=== PATIENT | female | born 1965 ===

== ENCOUNTER 2016-12-31 05:54 | Observation (INO) | payer BC ==
[2016-12-25 10:16] LABS: BASOPHILS 0.3 %; BASOPHILS ABSOLUTE 0.02 10/3/uL (0.0-0.16); EOSINOPHILS 0.6 %; EOSINOPHILS ABSOLUTE 0.05 10/3/uL (0.0-0.53); HEMATOCRIT 41.2 % (36.0-48.0); HEMOGLOBIN 13.6 g/dL (12.0-16.0); IMMATURE GRANULOCYTES 0.1 %; IMMATURE GRANULOCYTES ABSOLUTE 0.01 10/3/uL (0.0-0.11); LYMPHOCYTES 21.6 %; LYMPHOCYTES ABSOLUTE 1.69 10/3/uL (0.67-4.30); MANUAL DIFF NO %; MEAN CORPUSCULAR HEMOGLOB 29.5 pg (26.0-34.0); MEAN CORPUSCULAR VOLUME 89.4 fL (80-100); MONOCYTES 4.8 %; MONOCYTES ABSOLUTE 0.38 10/3/uL (0.21-1.20); NEUTROPHILS 72.6 %; NEUTROPHILS ABSOLUTE 5.69 10/3/uL (2.02-8.40); PLATELET COUNT 238 10/3/uL (150-400); RBC DISTRIBUTION WIDTH 13.1 % (12.0-16.0); RED CELL COUNT 4.61 10/6/uL (4.0-5.6); WHITE BLOOD CELLS 7.8 10/3/uL (4.5-10.5)
[2016-12-25 10:26] LABS: BUN (BLOOD UREA NITROGEN) 11 MG/DL (6-23); CALCIUM, SERUM 9.2 MG/DL (8.5-10.4); CHLORIDE, SERUM 106 MMOL/L (96-112); CO2 (CARBON DIOXIDE) 29 MMOL/L (24-34); GFR AFRICAN AMERICAN 118 ML/MIN (>=60); GFR NON AFRICAN AMERICAN 102 ML/MIN (>=60); GLUCOSE, SERUM 100 MG/DL (60-99); POTASSIUM, SERUM 3.8 MMOL/L (3.5-5.3); SODIUM, SERUM 143 MMOL/L (135-148)
--- NOTE | ~2016-12-31 | OP ---
Record Of Operation [facility] [address] [place]. [address] NAME: FATEMEH RIBERA : 69 STATUS : DIS Aamnda PAT#: [id number] AGE: 51 ADM/REG DATE : 12/31/16 MR#: [id number] REPORT SERV DATE: 01/05/17 DICTATED BY: ROCKY HWANG DATE: 01/05/17 REPORT STATUS : Draft TRANSCRIBED BY: MODOctavia DATE: 01/05/17 DATE OF PROCEDURE: 12/31/2016 PREOPERATIVE DIAGNOSES: 1. Abnormal uterine bleeding. 2. Chronic pelvic pain. POSTOPERATIVE DIAGNOSIS: Fibroid uterus. PROCEDURES: 1. Laparoscopic hysterectomy with bilateral salpingo-oophorectomy via da Óscar laparoscopic robotic instrument, CPT code 74535. 2. Extensive lysis of adhesions, CPT code 99776. 3. Repair of ventral hernia laparoscopically, CPT Code 51923. ESTIMATED BLOOD LOSS: 25 mL. FLUIDS: 1600 mL of crystalloid. URINE OUTPUT: 200 mL. INDICATION AND FINDINGS: This is a 51-year-old female who has had abnormal uterine bleeding not controlled by hormonal therapy and she is now requested the uterus be removed. The uterus was removed intact and appeared to be consistent with fibroids and adenomyosis. She was also noted to have a large ventral hernia from previous surgery. Extensive lysis of adhesions was undertaken to remove all contents from the hernia which included the omentum. Once the contents were removed. The hernia was repaired using 0 PDS V-Loc. Postprocedure cystoscopy was performed with excellent bilateral ureteral jets. No evidence of bladder defect. Prior to the induction of anesthesia, the patient was treated with Lovenox for DVT prophylaxis. PROCEDURE IN DETAIL: The patient was taken to the operating room, placed in supine position for administration of general anesthesia. She was then placed in dorsal lithotomy position and prepped and draped in usual sterile fashion. A GRACE uterine manipulator was placed through the uterine cervix and out the fundus, and a OH ring was sutured to the patient's cervix. Our attention was then turned toward the anterior abdominal wall where an incision was made approximately 25 cm above the pubic symphysis and carried down to the underlying layer of fascia. The fascia was then grasped with two sutures of 0 Vicryl, tented up, and entered sharply. The peritoneum was then tented up and entered sharply, and a laparoscopic trocar was placed under direct visualization. The abdominal cavity was insufflated, two additional 8 mm trocars were placed, one additional 12 mm trocar was placed. The patient was then docked to the laparoscopic robotic instrument and the remainder of the procedure was performed via the da Óscar. The above findings were noted. Pelvic washings were taken. Extensive lysis of adhesions was undertaken. Again, the omentum was densely adherent to the anterior abdominal wall with a large hernia noted. All the omentum was removed from the hernia, and this was performed sharply with cautery for hemostasis. Once the hernia was Record Of Operation [facility] [id number] [place]. [address] NAME: FATEMEH RIBERA : 69 STATUS : DIS Amanda PAT#: [id number] AGE: 51 ADM/REG DATE : 12/31/16 MR#: [id number] REPORT SERV DATE: 01/05/17 DICTATED BY: ROCKY HWANG DATE: 01/05/17 REPORT STATUS : Draft TRANSCRIBED BY: DUNCAN DATE: 01/05/17 removed and the fascial edges were clearly visible 0 PDS V-Loc was then used to close the ventral hernia. Once the ventral hernia was closed adequately, our attention was then turned towards the pelvis. The retroperitoneal spaces were opened via the round ligaments which were grasped with bipolar cautery, cauterized and transected bilaterally. The gonadal vessels were isolated. Hemoclips were placed to ensure long-term hemostasis. They were then coagulated and transected bilaterally. The uterine arteries were identified at their origin and hemoclips were placed to ensure long-term hemostasis. They were then skeletonized at the level of the cervix, grasped with bipolar cautery, cauterized and transected bilaterally. Anteriorly, a bladder flap was created and taken down to a level well below the cervix. The uterosacral cardinal complex was then taken down using unipolar cautery and a circumferential incision was made around the cervix and vagina and the uterus, tubes, ovaries, and cervix were delivered through the vagina with the above findings noted. The vaginal cuff was then closed with a running stitch of #1 PDS V-Loc. The pelvis was irrigated with copious amounts of warm water. All pedicles were inspected and found to be hemostatic. Sites on the anterior abdominal wall and omentum were also visualized with excellent hemostasis noted. The laparoscopic instruments were removed. The initial incision was closed with 0 Vicryl at the fascia, the 12 mm port was also closed with 0 Vicryl at the fascia using a Christiano-Mk closure device. The skin sites were closed with 4-0 Monocryl and Dermabond was placed. Postprocedure, a cystoscopy was performed with excellent bilateral ureteral jets. No evidence of bladder defect. At the completion of the procedure, the anesthesia was reversed, the patient was extubated, and brought to the recovery room in stable condition. BIRD/DUNCAN Rocky Hwang M.D. / [id number] CC: Sabine Sotelo M.D.
[~2016-12-31 05:54] MED LIST: HYDROCHLOROT12.5 MG PO; SYNTHROID200 MCG PO
[2017-01-01] MEDS ORDERED: PCET PO (10:05)
[2017-01-01] MEDS ORDERED: ZOFRAN8 PO (10:06)
== END 2017-01-01 12:32 | disposition home or self-care (01) ==
LOC: SDC 05:54 → 4EA 14:09
PROVIDERS: Obstetrics & Gynecology Gynecologic Oncology
PROC: 0UT74ZZ Resection of Bilateral Fallopian Tubes, Percutaneous Endoscopic Approach (ICD-10-PCS; 2016-12-31)
PROC: 0DNS4ZZ (ICD-10-PCS; 2016-12-31)
PROC: 0DNT4ZZ (ICD-10-PCS; 2016-12-31)
PROC: 0WQF4ZZ Repair Abdominal Wall, Percutaneous Endoscopic Approach (ICD-10-PCS; principal; 2016-12-31 07:00)
PROC: 0UT94ZZ Resection of Uterus, Percutaneous Endoscopic Approach (ICD-10-PCS; 2016-12-31 07:00)
PROC: 0UTC4ZZ Resection of Cervix, Percutaneous Endoscopic Approach (ICD-10-PCS; 2016-12-31 07:00)
PROC: 0UT24ZZ Resection of Bilateral Ovaries, Percutaneous Endoscopic Approach (ICD-10-PCS; 2016-12-31 07:00)
DX: N84.0 Polyp of corpus uteri (principal); N88.8 Other specified noninflammatory disorders of cervix uteri; D25.9 Leiomyoma of uterus, unspecified; N80.0 Endometriosis of uterus; N83.8 Other noninflammatory disorders of ovary, fallopian tube and broad ligament; K43.9 Ventral hernia without obstruction or gangrene; G51.0 Bell's palsy; J45.909 Unspecified asthma, uncomplicated; M19.90 Unspecified osteoarthritis, unspecified site; E66.9 Obesity, unspecified; Z68.35 Body mass index [BMI] 35.0-35.9, adult; Z85.850 Personal history of malignant neoplasm of thyroid; Z92.3 Personal history of irradiation; Z87.891 Personal history of nicotine dependence; Z88.0 Allergy status to penicillin; Z88.5 Allergy status to narcotic agent; Z90.89 Acquired absence of other organs; Z90.49 Acquired absence of other specified parts of digestive tract; Z79.899 Other long term (current) drug therapy; Z98.890 Other specified postprocedural states
CPT/HCPCS: 36415; 71010; 71020; 80048; 84703; 85025; 86850; 86900; 86901; 88112; 88307; 93005; 94640; 96372; 96374; 96375; 96376; A9270-GY; G0378; J0694; J1170; J1885; J1956; J2250; J2405; J2710; J2795; J3010